=== PATIENT | female | born 1945 | race Two or more races ===

== ENCOUNTER 2019-06-05 08:30 | Day surgery (SDC) | payer OTHER | END 2019-06-05 14:30 | disposition home or self-care (01) | LOC: AMB-ENDOS 08:30 | DX: C20 Malignant neoplasm of rectum (principal); K64.1 Second degree hemorrhoids; Z85.038 Personal history of other malignant neoplasm of large intestine ==

== ENCOUNTER 2021-10-17 08:03 | Outpatient (CLI) | payer OTHER | END 2021-10-17 08:04 | disposition home or self-care (01) | LOC: NUCLEAR 08:03 | PROVIDERS: ATTEND Internal Medicine Cardiovascular Disease | DX: I20.9 Angina pectoris, unspecified (principal) ==

== ENCOUNTER 2021-10-17 08:18 | Outpatient (CLI) | payer OTHER | END 2021-10-17 08:19 | disposition home or self-care (01) | LOC: LAB 08:18 | PROVIDERS: ATTEND Internal Medicine | DX: U07.1 COVID-19 (principal); B34.1 Enterovirus infection, unspecified ==